=== PATIENT | male | born 1990 | race Caucasian/White ===

== ENCOUNTER 2020-07-10 10:53 | Emergency (ER) | payer OTHER ==
--- NOTE | 2020-07-10 12:04 | EDM.PDOC ---
ED HPI GENERAL MEDICAL PROBLEM - General Chief Complaint: Flank Pain Stated Complaint: BACK HURTS, COMES AROUND TO ABDOMIN Time Seen by Provider: 07/10/20 11:54 Source of Information: Reports: Patient, RN, RN Notes Reviewed History Limitations: Reports: No Limitations - History of Present Illness INITIAL COMMENTS - FREE TEXT/NARRATIVE: Patient presents to the ED via personal vehicle with complaints of bilateral flank pain that radiates into his bilateral abdomen. The patient states he first noted the pain six days ago. He was evaluated in clinic and was subsequently tested for COVID, but received no imaging, blood work, or urinalysis. He characterizes the pain as waxing and waning in nature and sharp. He states when the pain is the worst it radiates into his bilateral testicles. He has taken ibuprofen and acetaminophen for the pain, which he feels has offered some alleviation. He denies a history of kidney stones; he has no dysuria, hematuria, or inability to void. He denies mechanism of injury to his back, but does note he has been remodeling a home bathroom. He denies fever, shaking chills, cough, sore throat, nausea, vomiting, diarrhea, melena, or kiel tochezia. He denies tobacco, alcohol, or recreational drug use. Bilateral Flank Pain Score (Numeric/FACES): 4 - Related Data Allergies Allergy/AdvReac Type Severity Reaction Status Date / Time No Known Allergies Allergy Verified 07/10/20 11:01 Home Meds: Home Meds . [No Known Home Meds] 07/10/20 [History] Past Medical History HEENT History: Reports: None Cardiovascular History: Reports: None Respiratory History: Reports: None Gastrointestinal History: Reports: None Genitourinary History: Reports: None Musculoskeletal History: Reports: None Neurological History: Reports: None Psychiatric History: Reports: None Endocrine/Metabolic History: Reports: None Hematologic History: Reports: None Immunologic History: Reports: None Oncologic (Cancer) History: Reports: None Dermatologic History: Reports: None - Infectious Disease History Infectious Disease History: Reports: None - Past Surgical History Head Surgeries/Procedures: Reports: None Social & Family History - Family History Family Medical History: No Pertinent Family History - Tobacco Use Tobacco Use Status *Q: Current Every Day Tobacco User Years of Tobacco use: 7 Packs/Tins Daily: 1 - Caffeine Use Caffeine Use: Reports: Coffee, Soda - Recreational Drug Use Recreational Drug Use: No ED ROS GENERAL - Review of Systems Review Of Systems: Comprehensive ROS is negative, except as noted in HPI. ED EXAM,LOWER BACK PAIN/INJURY - Physical Exam Exam: See Below Exam Limited By: No Limitations General Appearance: Alert, No Apparent Distress Respiratory/Chest: No Respiratory Distress, Lungs Clear, Normal Breath Sounds, No Accessory Muscle Use, Chest Non-Tender Cardiovascular: Normal Peripheral Pulses, Regular Rate, Rhythm, No Edema, No Gallop, No JVD, No Murmur, No Rub GI/Abdominal: Normal Bowel Sounds, Soft, No Distention, No Mass, Pelvis Stable, Tender (To palpation of LUQ). No: Guarding, Rigid, Rebound, Hernia (Male) Exam: No Hernia, Normal Inspection, Circumcised. No: Inguinal Lymphadenopathy, Penile Lesions, Rash, Scrotal Swelling, Scrotum Tenderness (L), Scrotum Tenderness (R), Testicular Mass, Testicular Tenderness (L), Testicular Tenderness (R), Urethral Discharge Back Exam: Normal Inspection, Full Range of Motion. No: CVA Tenderness (L), CVA Tenderness (R), Muscle Spasm, Paraspinal Tenderness, Vertebral Tenderness Extremities: Normal Inspection Neurological: Alert, Normal Mood/Affect, Normal Dorsiflexion, CN II-XII Intact, Normal Plantar Flexion, Normal Gait, Normal Reflexes, No Motor/Sensory Deficits, Oriented x 3 Psychiatric: Normal Affect, Normal Mood Skin Exam: Warm, Dry, Intact, Normal Color, No Rash Course - Vital Signs Last Recorded V/S: Last Vital Signs Temp 97.6 F 07/10/20 11:01 Pulse 90 07/10/20 11:01 Resp 18 07/10/20 11:01 BP 121/69 07/10/20 11:01 Pulse Ox 98 07/10/20 11:01 - Orders/Labs/Meds Labs: Laboratory Tests 07/10/20 07/10/20 07/10/20 Range/Units 11:18 11:56 11:56 WBC 9.3 (5.0-10.0) 10^3/uL RBC 4.96 (4.6-6.2) 10^6/uL Hgb 16.0 (14.0-18.0) g/dL Hct 46.8 (40.0-54.0) % MCV 94.4 (80-100) fL MCH 32.3 (27.0-34.0) pg MCHC 34.2 (33.0-35.0) g/dL Plt Count 207 (150-450) 10^3/uL Neut % (Auto) 63.4 (42.2-75.2) % Lymph % (Auto) 28.3 (20.5-50.1) % Calhoun % (Auto) 5.6 (2-8) % Eos % (Auto) 2.4 (1.0-3.0) % Baso % (Auto) 0.3 (0.0-1.0) % Sodium 140 (136-145) mmol/L Potassium 4.3 (3.5-5.1) mmol/L Chloride 104 (98-107) mmol/L Carbon Dioxide 30 (21-32) mmol/L Anion Gap 10.3 (7-13) mEq/L BUN 8 (7-18) mg/dL Creatinine 0.94 (0.70-1.30) mg/dL Est Cr Clr Drug Dosing 101.81 mL/min Estimated GFR (MDRD) > 60 BUN/Creatinine Ratio 8.5 (No establ ref range) Glucose 99 (74-99) mg/dL Calcium 8.5 (8.5-10.1) mg/dL Total Bilirubin 0.4 (0.2-1.0) mg/dL AST 13 L (15-37) U/L ALT 33 (16-63) U/L Alkaline Phosphatase 74 (46-116) U/L Total Protein 6.5 (6.4-8.2) g/dL Albumin 3.5 (3.4-5.0) g/dL Globulin 3.0 Albumin/Globulin Ratio 1.2 Amylase 67 (25-115) U/L Lipase 139 (73-393) U/L Urine Color Yellow (YELLOW) Urine Appearance Clear (CLEAR) Urine pH 7.0 (5.0-9.0) Ur Specific Kila 1.025 (1.005-1.030) Urine Protein Negative (NEGATIVE) Urine Glucose (UA) 100 H (NEGATIVE) Urine Ketones Negative (NEGATIVE) Urine Occult Blood Negative (NEGATIVE) Urine Nitrite Negative (NEGATIVE) Urine Bilirubin Negative (NEGATIVE) Urine Urobilinogen 0.2 (0.2-1.0) mg/dL Ur Leukocyte Esterase Negative (NEGATIVE) Meds: Medications Discontinued Medications Generic Name Dose Route Start Last Admin Trade Name Teja PRN Reason Stop Dose Admin Cyclobenzaprine HCl 10 mg 07/10/20 12:39 Flexeril PO 07/10/20 12:40 ONETIME ONE Ketorolac Tromethamine 30 mg 07/10/20 12:39 07/10/20 12:51 Toradol IM 07/10/20 12:40 30 mg ONETIME ONE Administration - Re-Assessments/Exams Free Text/Narrative Re-Assessment/Exam: 07/10/20 UA unremarkable; no blood, bacteria, or sediment noted. Kidney function appropriate with creatinine of 0.94, BUN 8, and GFR >60. CBC unremarkable for acute processes; no infection or anemia appreciated. Findings of lab work discussed with patient. Given transient nature of significant pain in the presence of potential for muscle strain, will treat patient for acute muscle spasm with Flexeril and Toradol. Red flag signs and symptoms which would warrant reevaluation discussed with patient. He verbalized understanding and agreement with the plan of care. Departure - Departure Time of Disposition: 12:45 Disposition: Home, Self-Care 01 Condition: Good Clinical Impression: Muscle spasm - Discharge Information *PRESCRIPTION DRUG MONITORING PROGRAM REVIEWED*: Not Applicable *COPY OF PRESCRIPTION DRUG MONITORING REPORT IN PATIENT SUZIE: Not Applicable Instructions: Muscle Cramps and Spasms, [id number] Forms: ED Department Discharge Additional Instructions: Rx: Flexeril Rx: Ketorolac 1.) Alternate heat and ice to the affected area, 20 minutes every hour, as pain persists. 2.) Drink plenty of water to stay hydrated while taking these prescribed medications. 3.) Return to your primary care provider, or the emergency department, with pain that does not improve with medications, fever, or shaking chills. Sepsis Event Note (ED) - Evaluation Sepsis Screening Result: No Definite Risk
[2020-07-10 12:21] LABS: ANION GAP 10.3 mEq/L (7-13); CHLORIDE,CL 104 mmol/L (98-107); SODIUM,NA 140 mmol/L (136-145)
[2020-07-10] MEDS ORDERED: Ketorolac 30 MG/ML SDV IM ONE (12:39)
[2020-07-10] MEDS ORDERED: Cyclobenzaprine 10 MG Tab PO ONE (12:39)
== END 2020-07-10 12:56 | disposition home or self-care (01) ==
LOC: DL.ED 10:53
DX: M62.838 Other muscle spasm (principal); Z72.0 Tobacco use
CPT/HCPCS: 36415; 80053; 81003; 82150; 83690; 85025; 96372; 99284; J1885; 99283